=== PATIENT | female | born 1995 | race African-American/Black ===

== ENCOUNTER 2023-09-19 20:37 | Emergency (ER) | payer BC ==
[~2023-09-19] VITALS: Ht 180.3 cm; Wt 114.0 kg
[2023-09-19 20:41] VITALS: O2SAT 97
[2023-09-19 22:00] LABS: BASOPHILS % 0.6 % (0.0-2.0); DIFFERENTIAL COMMENT 0; HEMATOCRIT. 36.6 % (36.0-48.0); HEMOGLOBIN. 11.5 g/dL (12.0-16.0); LYMPHOCYTES % 8.8 % (20.0-50.0); MEAN CORPUSCULAR HEMOGLOBIN 23.5 pg (28.0-32.0); MEAN CORPUSCULAR HGB CONC 31.3 g/dL (31.0-37.0); MEAN CORPUSCULAR VOLUME 75.1 fL (81.0-99.0); NEUTROPHILS % 87.6 % (40.0-76.0); PLATELET 340 x1000/uL (130-400); RED BLOOD CELL COUNT 4.87 mill/uL (4.2-5.4); RED CELL DISTRIBUTION WIDTH 17.3 % (11.6-14.6); WHITE BLOOD COUNT 12.2 x1000/uL (4.5-11.0)
[2023-09-19 22:03] LABS: CHLORIDE 101 mEq/L (98-107); POTASSIUM 4.6 mEq/L (3.5-5.1); SODIUM 136 mEq/L (136-145)
[2023-09-19 22:04] LABS: CARBON DIOXIDE 24 mEq/L (21-32)
[2023-09-19 22:05] LABS: CALCIUM 9.4 mg/dL (8.7-10.4)
[2023-09-19 22:09] LABS: GLUCOSE 291 mg/dL (70-105); UREA NITROGEN BLOOD 8 mg/dL (9-23)
[2023-09-19 22:10] LABS: ETHANOL BLOOD < 10 mg/dL (<10)
[2023-09-19 22:15] LABS: HCG SCREEN NEGATIVE
[2023-09-19] MEDS: ONDANSETRON HCL 4MG/2ML INJ IV ONE (22:25)
[2023-09-19] MEDS: SODIUM CHLORIDE 0.9% 1,000 ML IV ONE (22:25)
[2023-09-20 00:14] VITALS: BP 31/92; PULSE 99; RESP 20; TEMP 98.2
== END 2023-09-20 00:15 | disposition home or self-care (01) ==
LOC: ER 20:37
DX: R42 Dizziness and giddiness (principal); E11.65 Type 2 diabetes mellitus with hyperglycemia; I10 Essential (primary) hypertension
CPT/HCPCS: 80048; 81025; 80320; 82962; 84703; 85025; 36415; 93005; 96361; 96374; 99284; J2405; J7030; Z7610 ×2; G0480